=== PATIENT | female | born 1980 | race Caucasian/White ===

== ENCOUNTER 2018-02-05 21:31 | Emergency (ER) | payer OTHER ==
[~2018-02-05] VITALS: Ht 162.6 cm; Wt 45.4 kg
--- NOTE | ~2018-02-05 | EKG ---
[address] [address] ELECTROCARDIOGRAM REPORT Name: JOCELIN YEPEZ Room #: [facility]#: [id number] Admission: 02/05/18 Attend Phys: Discharge: 02/06/18 Date of : 84 Report #: [id number] THIS REPORT FOR: //name// [facility] ED Test Date: 2018-02-05 Test Time: 22:00:01 Pat Name: JOCELIN YEPEZ Department: Room: Gender: F Prototype Special Build: [place] : 1980 Requested By: Wilton Barahona Order Number: [id number] MD: Jem Vieira Measurements Intervals [place] Rate: 87 P: 79 ID: [id number] QRS: 67 QRSD: 89 T: 66 QT: 350 QTc: 421 Interpretive Statements Sinus rhythm No significant abnormality No previous ECG available for comparison Electronically Signed On 02-06-2018 7:20:34 CDT by Jem Vieira [email or web address] <ELECTRONICALLY SIGNED> By: Jem Vieira MD, [facility] 02/06/18 0720 2200 99 Jem Vieira MD, FACC /EPI
[2018-02-05 22:14] LABS: ABSOLUTE NEUTROPHILS 6.5 thou/uL (1.4-8.2); BASOPHILS 0.8 % (0.0-2.0); EOSINOPHILS 4.5 % (0.0-3.0); HEMATOCRIT 48.5 % (37.0-47.0); HEMOGLOBIN 16.8 gm/dL (12.0-15.0); LYMPHOCYTES 25.3 % (24.0-44.0); MCHC 34.7 g/dL (28.0-37.0); MCV 97.9 fL (80.0-100.0); MONOCYTES 4.2 % (1.0-8.0); PLATELET COUNT 197 thou/uL (150-400); POLYS 65.2 % (36.0-66.0); RBC 4.96 mil/uL (4.20-5.00); RDW 13.9 % (10.5-14.5); WBC 9.9 thou/uL (4.0-11.0)
[2018-02-05 22:27] LABS: ANION GAP 10 mmol/L (7-16); BUN 15 mg/dL (7-18); CALCIUM 9.4 mg/dL (8.5-10.1); CHLORIDE 105 mmol/L (98-107); CO2 25 mmol/L (21-32); CREATININE 0.8 mg/dL (0.6-1.0); GLUCOSE 96 mg/dL (74-106); POTASSIUM 3.5 mmol/L (3.5-5.1); SODIUM 140 mmol/L (136-145)
[2018-02-05 22:31] LABS: ALBUMIN 4.5 g/dL (3.4-5.0); DIRECT BILIRUBIN < 0.1 mg/dL (<0.1-0.3); MAGNESIUM 2.3 mg/dL (1.8-2.4); PHOSPHORUS 3.9 mg/dL (2.5-4.9); SGPT 24 U/L (30-65); TOTAL BILIRUBIN 0.4 mg/dL (<0.1-1.0); TOTAL PROTEIN 8.2 g/dL (6.4-8.2)
[2018-02-05] MEDS ORDERED: RESTORIL30 MG PO (22:44)
[2018-02-05] MEDS ORDERED: TOPAMAX 100 MG100 MG PO (22:44)
[2018-02-05] MEDS ORDERED: VICODIN 5-3001 EACH PO (22:45)
[2018-02-05] MEDS ORDERED: CLONAZEPAM 0.50.5 M1 PO (22:45)
[2018-02-05 22:58] LABS: URINE BILIRUBIN NEGATIVE (Negative); URINE BLOOD NEGATIVE (Negative); URINE CLARITY CLEAR; URINE COLOR YELLOW; URINE GLUCOSE-RANDOM* NEGATIVE (Negative); URINE KETONES NEGATIVE (Negative); URINE LEUKOCYTES NEGATIVE (Negative); URINE NITRITE POSITIVE (Negative); URINE PROTEIN (DIPSTICK) NEGATIVE (Negative); URINE SPECIFIC GRAVITY 1.025 (1.005-1.035); URINE UROBILINOGEN 0.2 E.U./dl (0.2-1.0)
[2018-02-05 23:06] LABS: AMP/METHAMP Negative (Negative); BARBITURATES Negative (Negative); BENZODIAZEPINES POSITIVE (Negative); COCAINE Negative (Negative); METHADONE Negative (Negative); OPIATES Negative (Negative); PCP Negative (Negative)
[2018-02-05 23:09] LABS: SGOT 22 U/L (15-37)
[2018-02-05 23:12] LABS: BACTERIA >30 Many /HPF (None Seen); CASTS None Seen /LPF (None Seen); CRYSTALS None Seen /LPF (None Seen); MUCUS None Seen strn/LPF (None Seen); SQUAMOUS >10 Many /LPF (0-3); URINE RBC 0-2 Rare /HPF (0-2); URINE WBC 6-15 Few /HPF (0-5)
[2018-02-05] MEDS ORDERED: NAPROSYN500 MG PO (23:12)
[2018-02-05] MEDS ORDERED: BUTALB-APAP-CA1 EACH PO (23:12)
[2018-02-05 23:17] LABS: TROPONIN-I < 0.04 ng/mL (<0.06)
== END 2018-02-06 00:15 | disposition home or self-care (01) ==
LOC: ER 21:31
PROVIDERS: Emergency Medicine; Nurse Practitioner
DX: G43.909 Migraine, unspecified, not intractable, without status migrainosus (principal); R56.9 Unspecified convulsions; F17.210 Nicotine dependence, cigarettes, uncomplicated